=== PATIENT | female | born 1975 | race Two or more races ===

== ENCOUNTER 2018-05-08 22:14 | Emergency (ER) | payer OTHER ==
[~2018-05-08] VITALS: Ht 154.9 cm; Wt 48.1 kg
[2018-05-08 22:30] VITALS: BP 113/72
[2018-05-08] MEDS ORDERED: Tylenol #3 tab (300mg/30mg) PO ONE (22:45)
[2018-05-08] MEDS ORDERED: ACETAMINOPHEN-1 EAC1 ORAL (23:34)
[2018-05-08 23:50] VITALS: BP 120/70
[2018-05-08] MEDS ORDERED: PREDNISONE20 MG ORAL (23:50)
[2018-05-08] MEDS ORDERED: TYLENOL EXTRA500 MG ORAL (23:50)
[2018-05-08] MEDS ORDERED: DIPHENHYDRAMINE25 M1 ORAL (23:50)
[2018-05-08 23:58] VITALS: BP 110/69
--- NOTE | 2018-05-09 00:19 | Emergency Room Report ---
History of Present Illness General Chief Complaint: Lower Back Pain or Injury Source: Patient, Family Member Present Illness HPI 43-year-old female presents ED for evaluation. Patient states she slipped at work yesterday and landed on her buttock. Complaining of persistent lower back pain. 10 out of 10, throbbing, nonradiating. Denies any other injuries. Denies any bowel or bladder incontinence. Denies any leg or motor weakness. No other aggravating relieving factors. Denies any other associated symptoms Allergies: Coded Allergies: CODEINE (Unverified Allergy, Mild, pt stated "dizzyness. tightness in throat", 05/09/18) Patient History Past Medical History: none Past Surgical History: none Pertinent Family History: none Social History: Denies: smoking, alcohol use, drug use Last Menstrual Period: now Now: No Immunizations: UTD Reviewed Nursing Documentation: PMH: Agreed; PSxH: Agreed Review of Systems All Other Systems: negative except mentioned in HPI Physical Exam Vital Signs Date Time Temp Pulse Resp B/P (MAP) Pulse Ox O2 Delivery O2 Flow Rate FiO2 05/08/18 22:17 97.6 76 16 113/72 99 Room Air 97.5 Sp02 EP Interpretation: reviewed, normal General Appearance: no apparent distress, alert, GCS 15, non-toxic Head: normocephalic Eyes: bilateral eye normal inspection, bilateral eye PERRL ENT: normal ENT inspection Neck: normal inspection Respiratory: normal inspection Cardiovascular #1: normal inspection Gastrointestinal: normal inspection Rectal: deferred Genitourinary: no CVA tenderness, vertebral tenderness Musculoskeletal: gait/station normal, normal range of motion Neurologic: alert, oriented x3, responsive, motor strength/tone normal, sensory intact, speech normal Psychiatric: normal inspection Skin: normal inspection Lymphatic: normal inspection Medical Decision Making Diagnostic Impression: Primary Impression: Back contusion Qualified Codes: S20.229A - Contusion of unspecified back wall of thorax, initial encounter ER Course Hospital Course 43 yo F presents to ED c/o lower back pain s/p fall Differential diagnoses include: Fracture, dislocation, sprain, contusion Clinical course Patient placed on stretcher. After initial history and physical, I ordered pain medications and Xrays of L spine Xrays prelim read shows no acute fracture/dislocation. Discussed findings with patient and family. Likely contusion. Safe for discharge close outpatient follow-up Just prior to discharge patient noted feeling lightheaded and complaining of throat tightness. Patient was given Tylenol No. 3 for pain. Patient denies any known medication allergies. There is no urticaria. No stridor. No tongue swelling. Possible adverse reaction to the codeine as patient has been taking Tylenol previously. Given prednisone and Benadryl here in ED. Informed family and patient about possible adverse reactions to codeine. We'll discharge with extra strength Tylenol and prednisone and Benadryl Diagnosis - back contusion Stable and discharged to home with prescription for Tylenol, prednisone, benedryl. apply ice. weight bear as tolerated. Followup with PMD. Return to ED if symptoms recur or worsen Other X-Ray Diagnostic Results Other X-Ray Diagnostic Results : X-Ray ordered: L spine # of Views/Limited Vs Complete: 3 View Indication: Pain EP Interpretation: Yes Interpretation: no dislocation, no soft tissue swelling, no fractures Impression: No acute disease Electronically Signed by: Electronically signed by Tim Barahona MD Last Vital Signs Date Time Temp Pulse Resp B/P (MAP) Pulse Ox O2 Delivery O2 Flow Rate FiO2 05/08/18 23:11 97.6 05/08/18 22:17 76 16 113/72 99 Room Air Status: improved Disposition: HOME, SELF-CARE Condition: Stable Scripts Diphenhydramine Hcl* (DIPHENHYDRAMINE HCL*) 25 Mg Capsule 25 MG ORAL Q6H PRN for Itching for 5 Days, #30 CAP 0 Refills Prov: Tim Barahona MD 05/08/18 Prednisone* (PREDNISONE*) 20 Mg Tablet 40 MG ORAL DAILY, #10 TAB Prov: Tim Barahona MD 05/08/18 Acetaminophen* (TYLENOL EXTRA STRENGTH*) 500 Mg Tablet 500 MG ORAL Q8H PRN for Prn Headache/Temp > 101, #30 TAB 0 Refills Prov: Tim Barahona MD 05/08/18 Departure Forms: Return to Work Return to Work Date: May 11, 2018 Work Restrictions: No Heavy Lifting Patient Instructions: Back Pain, Adult Tim Barahona MD May 09, 2018 00:19
--- NOTE | 2018-05-09 11:26 | Diagnostic Imaging Report ---
Indication: Lumbar pain after pulling out and falling at work Technique: 3 views of the lumbar spine Comparison: None Findings: Bony alignment is normal. Vertebral body heights are preserved. Disc spaces are preserved. No acute fractures. No dislocations. There are endoluminal tubal ligation devices noted bilaterally. Impression: No acute process This agrees with the preliminary interpretation provided by the emergency room physician
== END 2018-05-08 23:58 | disposition home or self-care (01) ==
LOC: EMR 22:37
DX: S20.229A Contusion of unspecified back wall of thorax, initial encounter (principal); W01.0XXA Fall on same level from slipping, tripping and stumbling without subsequent striking against object, initial encounter; Y93.89 Activity, other specified; Y92.89 Other specified places as the place of occurrence of the external cause; Y99.0 Civilian activity done for income or pay
CPT/HCPCS: 72020; 81025; 99283; J7512

== ENCOUNTER 2018-07-21 13:36 | Emergency (ER) | payer SELFPAY ==
[~2018-07-21] VITALS: Ht 154.9 cm; Wt 50.8 kg
[~2018-07-21 13:36] MED LIST: ACETAMINOPHEN-1 EAC1 ORAL; DIPHENHYDRAMINE25 M1 ORAL; PREDNISONE20 MG ORAL; TYLENOL EXTRA500 MG ORAL
[2018-07-21 13:59] VITALS: BP 101/72
--- NOTE | 2018-07-21 14:14 | Emergency Room Report ---
History of Present Illness General Chief Complaint: Pain Source: Patient Present Illness HPI 43-year-old female patient presents the ER complaining of left-sided back pain that radiates down to her foot intermittently for the past 2 weeks. Denies acute injury or trauma, states that there was an injury 2 months ago where she fell onto her back. Denies bowel bladder incontinence. Denies pain with ambulation. Denies taking blood thinner medications. Denies history of diabetes. Denies fever, chest pain, shortness of breath. Denies calf pain. Denies abdominal pain. Denies history of cancer or drug use. Denies history of kidney stones. Denies dysuria, hematuria. Denies . States previously seen here, had Tylenol with codeine and her throat "closed up". Allergies: Coded Allergies: CODEINE (Unverified Allergy, Mild, pt stated "dizzyness. tightness in throat", 05/09/18) ACETAMINOPHEN (Verified Allergy, Unknown, 07/21/18) HYDROCODONE (Verified Allergy, Unknown, 07/21/18) Patient History Past Medical History: see triage record Reviewed Nursing Documentation: PMH: Agreed; PSxH: Agreed Nursing Documentation-PMH Past Medical History: No Stated History Review of Systems All Other Systems: negative except mentioned in HPI Physical Exam Vital Signs Date Time Temp Pulse Resp B/P (MAP) Pulse Ox O2 Delivery O2 Flow Rate FiO2 07/21/18 13:52 98.2 81 17 94/67 98 Room Air Sp02 EP Interpretation: reviewed, normal General Appearance: well appearing, no apparent distress, alert, GCS 15, non- toxic Head: normocephalic, atraumatic Eyes: bilateral eye normal inspection, bilateral eye PERRL ENT: hearing grossly normal, normal pharynx, no angioedema, normal voice, uvula midline, moist mucus membranes Neck: full range of motion Respiratory: lungs clear, normal breath sounds, no rhonchi, no respiratory distress, no accessory muscle use, no wheezing, speaking full sentences Cardiovascular #1: regular rate, rhythm, no edema Cardiovascular #2: 2+ dorsalis pedis (R), 2+ dorsalis pedis (L) Gastrointestinal: non tender, soft, no mass, non-distended, no guarding, no pulsatile mass, no rebound Musculoskeletal: back normal, digits/nails normal, gait/station normal, normal range of motion, no calf tenderness, Debra's Sign negative, tender - left lumbosacral region, coccyx Neurologic: alert, oriented x3, responsive, motor strength/tone normal, SLR negative, sensory intact, cerebellar normal, normal gait, speech normal Psychiatric: mood/affect normal Skin: no rash Medical Decision Making PA Attestation Dr. Rodriguez is my supervising Physician whom patient management has been discussed with. Diagnostic Impression: Primary Impression: Lumbosacral radiculopathy Additional Impression: Fracture of coccyx ER Course Pt presents to ED c/o back pain. DDX considered but are not limited to sprain, strain, cauda equina, epidural abscess, AAA, spinal cord compression, kidney stones. Paty dysuria, hematuria, vaginal discharge, low suspicion for UTI. Low suspicion for cauda equina, no bowel or bladder incontinence or retention. No fever, nontoxic appearing, no radiation of pain, low suspicion for epidural mass. No abdominal pain, no blood pressure elevation, nontoxic appearing, low suspicion for AAA. VITAL SIGNS are WNL, patient is afebrile Ordered pain medication, imaging, labs. ER COURSE: Pain medication, muscle relaxant and lidocaine patch provided. Imaging ordered. Patient denied . Xray lumbar spine shows coccygeal fracture per the official reading. Discussed results with radiologist. Informed patient of results. Advised on rest, ice, heat. followup with PCP. Followup with pain management and/or PT. Request referral from PCP. Followup with PCP for further MRI and/or CT imaging as needed. DISCHARGE: -Rx provided for Motrin -Rx provided for Lidocaine patch -Rx provided for Robaxin. SE may cause drowsiness, do not take prior to drinking , driving, or operating heavy machinery. At this time pt. is stable for d/c to home. At this time patient is resting comfortably, in no acute distress, nontoxic appearing, smiling and talking without difficulty. Will provide printed patient care instructions, and any necessary prescriptions. Patient instructed to follow with primary care provider for further treatment and referral as needed. Care plan and follow up instructions have been discussed with the patient prior to discharge. Patient reports understanding and agreement to treatment plan. Patient questions asked and answered. ER precautions given, patient instructed to return to ER immediately for any new or worsening of symptoms. - Please note that this Emergency Department Report was dictated using [employer] supervisor technology software, occasionally this can lead to erroneous entry secondary to interpretation by the dictation equipment. Other X-Ray Diagnostic Results Other X-Ray Diagnostic Results : X-Ray ordered: lumbar spine # of Views/Limited Vs Complete: 4 View Indication: Pain EP Interpretation: Yes PA Xray: Interpretation reviewed, by supervising MD, and agrees with findings. Interpretation: no dislocation, no soft tissue swelling, other - fracture Impression: Other - coccyx fracture PA Scribe Text Duong Medina PA-C Last Vital Signs Date Time Temp Pulse Resp B/P (MAP) Pulse Ox O2 Delivery O2 Flow Rate FiO2 07/21/18 13:59 98.5 76 16 101/72 99 Room Air Status: improved Disposition: HOME, SELF-CARE Condition: Stable Scripts Ibuprofen* (MOTRIN*) 600 Mg Tablet 600 MG ORAL Q8H PRN for For Pain, #30 TAB 0 Refills Prov: Nilesh Medina 07/21/18 Methocarbamol* (ROBAXIN*) 500 Mg Tablet 500 MG PO TID, #21 TAB 0 Refills Prov: Nilesh Medina 07/21/18 Lidocaine (Lidocaine) 1 Each Adh..patch 5 % TP DAILY for 7 Days, #7 PATCH Prov: Nilesh Medina 07/21/18 Patient Instructions: Lumbosacral Radiculopathy, Sciatica, [id number], Tailbone Injury, [id number] Additional Instructions: Patient instructed to follow up with primary care provider 3-5 and discuss further referral and imaging at that time. Patient instructed on rest, ice and heat. Do not take muscle relaxant prior to drinking, driving, or operating heavy machinery. Use donut pillow for sitting. Take medications as directed. Patient questions asked and answered. ER precautions given, patient instructed to return to ER immediately for any new or worsening of symptoms. [facility] [address] [facility] [address] [facility], [id number] [email or web address] Nilesh Medina Jul 21, 2018 14:14
[2018-07-21] MEDS ORDERED: Methocarbamol 500mg tab ORAL ONE (14:15)
[2018-07-21] MEDS ORDERED: LIDOCAINE700 M1 TP (14:29)
[2018-07-21] MEDS ORDERED: ROBAXIN500 MG PO (14:29)
--- NOTE | 2018-07-21 14:51 | Diagnostic Imaging Report ---
Indication: Back pain x2 weeks Technique: 3 views of the lumbar spine Comparison: None Findings: There is posterior displacement of the distal coccyx with a gap between the segments. The margins appear clean, suspect that this is developmental but acute coccygeal fracture not completely excludable. The remainder the bony alignment is normal. Vertebral heights are preserved. The disc spaces are preserved. Fallopian tubal occlusion devices are incidentally noted Impression: Somewhat abnormal appearing coccyx. Suspect developmental anomaly, but coccygeal fracture also possible. Correlate with clinical findings No evidence of acute bony trauma otherwise Findings discussed with nurse practitioner Nilesh Medina in the emergency room at the time of interpretation.
[2018-07-21] MEDS ORDERED: IBUPROFEN600 MG ORAL (15:08)
[2018-07-21 15:14] VITALS: BP 105/75
== END 2018-07-21 15:16 | disposition home or self-care (01) ==
LOC: MERGE 14:20 → EMR 14:20
DX: M54.17 Radiculopathy, lumbosacral region (principal); S32.2XXA Fracture of coccyx, initial encounter for closed fracture; X58.XXXA Exposure to other specified factors, initial encounter; Y92.9 Unspecified place or not applicable; Z88.6 Allergy status to analgesic agent; Z88.5 Allergy status to narcotic agent
CPT/HCPCS: 72020; 99283